=== PATIENT | female | born 1955 | race African-American/Black ===

== ENCOUNTER 2017-04-23 23:43 | Emergency (ER) | payer OTHER, MEDICARE, MEDICAID ==
[~2017-04-23] VITALS: Ht 157.5 cm; Wt 96.4 kg
[2017-04-24] MEDS ORDERED: TRAM50TA4 PO (00:09)
[2017-04-24] MEDS ORDERED: HYDR25TA PO (00:09)
[2017-04-24] MEDS ORDERED: METO25XL PO (00:09)
[2017-04-24] MEDS ORDERED: KDUR10 PO (00:09)
[2017-04-24] MEDS ORDERED: ASPI-1182 PO (00:09)
[2017-04-24] MEDS ORDERED: GABA-531 PO (00:09)
[2017-04-24] MEDS ORDERED: FAMO20 PO (00:09)
[2017-04-24] MEDS ORDERED: ALPR0.5T8 PO (00:09)
[2017-04-24] MEDS ORDERED: LOSA25TA21 PO (00:09)
[2017-04-24] MEDS ORDERED: CYCL10 PO (00:09)
[2017-04-24] MEDS ORDERED: CYCLOBENZAPRINE HCL 10 MG TABLET PO ONE (01:00)
[2017-04-24] MEDS ORDERED: LIDOCAINE HCL 5% TRANSDERMAL PATCH TD ONE (01:00)
[2017-04-24 01:46] VITALS: BP 136/80
== END 2017-04-24 02:20 | disposition home or self-care (01) ==
LOC: EMS 23:47
DX: M19.90 Unspecified osteoarthritis, unspecified site (principal); M54.5 Low back pain; I10 Essential (primary) hypertension; G89.29 Other chronic pain; Z79.82 Long term (current) use of aspirin; V43.52XA Car driver injured in collision with other type car in traffic accident, initial encounter; Y93.89 Activity, other specified; Y92.488 Other paved roadways as the place of occurrence of the external cause; Y99.8 Other external cause status
CPT/HCPCS: 72110; 99284